=== PATIENT | female | born 1980 | race Caucasian/White ===

== ENCOUNTER 2020-11-15 18:49 | Emergency (ER) | payer OTHER ==
[~2020-11-15] VITALS: Ht 175.3 cm; Wt 113.6 kg
[2020-11-15] MEDS ORDERED: KETOROLAC 30 MG/ML VIAL. IVP ONE (19:15)
[2020-11-15] MEDS ORDERED: IV NORMAL SALINE 1,000ML 1,000 ML IV ONE ×2 (19:15→22:00)
--- NOTE | 2020-11-15 20:02 | PHYS DOC ---
Past History Past Medical History: Diabetes, Gallstones, Hypertension (CECILIA GUEVARA MD) Adult General Chief Complaint Chief Complaint: ABDOMINAL PAIN HPI HPI Patient is a 40-year-old female presents to the emergency department complaining of right lower rib and right upper abdomen pains for the past week. Patient states she has a history of gallstones and was supposed to have them removed last year but then "Covid happened ". Patient states that she sees SAROJ Hoffman for primary care but has not been able to get an appointment this week for her abdominal pains. Patient states that her pain is a 7/10 on a 1-10 pain scale, reporting it is at its worst when she first wakes up in the morning to get out of bed, and then noticed that gets worse when she goes from a sitting to a standing position. Patient states she has nauseated, however has not vomited, denies diarrhea or constipation. Patient denies recent fever or chills, chest pain, headaches, chest congestion or nasal congestion. Patient states she has no allergies to medications, takes no prescription or wwao-tvz-saaxxor medications at home, reports a surgical history of tubal ligation in 2018. Patient states that she has not had a normal period since August 2020. Patient denies any other physical complaints or physical concerns. (TERRENCE MATOS APRN) Review of Systems Review of Systems 14 body systems of review of systems have been reviewed. See HPI for pertinent positives and negative responses, otherwise all other systems are negative, nonpertinent or noncontributory. (TERRENCE MATOS APRN) Current Medications Current Medications Current Medications Medications (Trade) Dose Ordered Sig/Ken Start Time Stop Time Status Last Admin Dose Admin Ketorolac Tromethamine (Toradol 30mg Vial) 30 mg 1X ONCE 11/15/20 19:15 11/15/20 19:46 DC Sodium Chloride 1,000 ml @ 1,000 mls/hr 1X ONCE 11/15/20 19:15 11/15/20 20:14 (TERRENCE MATOS APRN) Allergies Allergies Allergies Coded Allergies Type Severity Reaction Last Updated Verified No Known Drug Allergies 11/15/20 No (TERRENCE MATOS APRN) Physical Exam Physical Exam Constitutional: Well developed, well nourished, no acute distress, non-toxic appearance. 40-year-old female in no apparent distress. HENT: Normocephalic, atraumatic, bilateral external ears normal, oropharynx moist, no oral exudates, nose normal. Eyes: PERRLA, EOMI, conjunctiva normal, no discharge. Neck: Normal range of motion, no tenderness, supple, no stridor. Cardiovascular:Heart rate regular rhythm, no murmur, heart sounds S1-S2 auscultation. Lungs & Thorax: Bilateral breath sounds clear to auscultation, all lung eid, no adventitious lung sounds appreciated. Abdomen: Bowel sounds normal, soft, no tenderness, no masses, no pulsatile masses. Except for right flank at most lower rib, pain elicited with palpation, negative Okeefe sign, negative McBurney's point tenderness, negative psoas sign, no negative rebound tenderness. No ecchymosis appreciated of the abdomen. Skin: Warm, dry, no erythema, no rash. Back: No tenderness, no CVA tenderness of the left or right. Extremities: No tenderness, no cyanosis, no clubbing, ROM intact, no edema. Neurologic: Alert and oriented X 3, normal motor function, normal sensory function, no focal deficits noted. Psychologic: Affect normal, judgement normal, mood normal. (TERRENCE MATOS APRN) Current Patient Data Lab Results Laboratory Tests Test 11/15/20 19:34 POC Urine HCG, Qualitative hcg negative (Negative) (TERRENCE MATOS APRN) EKG EKG [] (TERRENCE MATOS APRN) EKG My interpretation EKG shows sinus rhythm at 68 bpm. No acute morphology (CECILIA GEUVARA MD) Radiology/Procedures Radiology/Procedures [] (TERRENCE MATOS APRN) Radiology/Procedures [address] [address] IMAGING REPORT Signed PATIENT: RADHA JORDAN RACCOUNT: [id number] : 1980 LOCATION: ER AGE: 40 SEX: F EXAM STATUS: REG ER ORD. PHYSICIAN: CECILIA GUEVARA MD REASON: pain- Rt. abd. upper Omni 300 75cc PROCEDURE: CT ABD PELV W/ORAL&IV CONTRAST Exam: CT of abdomen and pelvis with contrast INDICATION: Pain TECHNIQUE: Sequential axial images through the abdomen and pelvis obtained following the administration of 75 mL of Omni 300 IV contrast. Sagittal and coronal reformatted images were reconstructed from the axial data and reviewed. Comparisons: None FINDINGS: Heart size is normal. No pericardial. Visualized lung bases are clear. No pleural effusion. There is hepatomegaly. Gallstones are noted within the gallbladder. Spleen, pancreas and adrenals are unremarkable. No perinephric inflammation or hydronephrosis. No ureteral calculi. Nonobstructing left renal calculus is noted. Bladder is partially distended and not well evaluated. Uterus is nonenlarged. No abnormal adnexal mass. Diverticulosis noted at the sigmoid colon without evidence of acute diverticulitis. Appendix is normal. No free intra-abdominal air or fluid. No obstruction. Abdominal aorta has a normal course and caliber. Abdominal vasculature is patent. No enlarged intra-abdominal lymph nodes are identified. No suspicious osseous lesions or acute fractures. IMPRESSION: 1. No acute process identified in the abdomen or pelvis. 2. Diverticulosis without evidence of acute diverticulitis. Exposure: One or more of the following in the visualized dose reduction techniques were utilized for this examination: 1. Automated exposure control 2. Adjustment of the MA and/or KV according to patient size 3. Use of iterative of reconstructive technique Electronically signed by: Renea Vallejo MD (11/15/2020 9:37 PM) [facility] DICTATED AND SIGNED BY: RENEA VALLEJO MD DATE: 11/15/202132 CC: CECILIA GUEVARA MD; AASHISH HOWE ~MTH0 0 (CECILIA GUEVARA MD) Heart Score C/O Chest Pain: No Risk Factors: Risk Factors: DM, Current or recent (<one month) smoker, HTN, HLP, family history of CAD, obesity. Risk Scores: Risk Factors: DM, Current or recent (<one month) smoker, HTN, HLP, family history of CAD, obesity. (TERRENCE MATOS APRN) HEART Score for Chest Pain: HEART Score for Chest Pain Response (Comments) Value History Slighlty/Non-Suspicious 0 ECG Normal 0 Age < 45 0 Risk Factors 1 or 2 Risk Factors 1 Troponin < Normal Limit 0 Total 1 Course & Med Decision Making Course & Med Decision Making Pertinent Labs and Imaging studies reviewed. (See chart for details) 40-year-old female, vital signs reviewed, presents to the emergency department concerning right upper abdomen pain and right lower rib pain. Physical examination concerning for possible rib injury versus kidney stone versus gallbladder pains. Will start 1 L normal saline, give 4 mg Zofran for nausea, IV Toradol for pain. CBC, CMP, lipase. Urinalysis assay. Will wait for urinalysis assay results to consider imaging of CT abdomen pelvis with or without contrast versus gallbladder sonogram study. End of shift report given to ED attending physician Dr. Guevara. Discussed patient case with Dr. Guevara who has assumed patient care at this time. (TERRENCE MATOS APRN) Course & Med Decision Making Discussed Hx., presentation, testing and tx. plan with Dr. Campbell- pt. to transfer to [facility]- and get surgical consult. Discussed Hx. , presentation, testing and tx plan with Dr. Mendoza- Surgery. Pt. now does not want to go to [facility]. Request transfer to . Pt. states her mother in law just [facility] after complications of abdomen surgery. Request to instead go to . Patient received fluid boluses of normal saline, insulin drip, and Zofran as needed for nausea. Pt.accepted at - Dr. Muñoz . Impression: 1. Abdomen pain 2. Biliary colic-gallstones 3. Elevated LFTs AST 276, ALT 351, alk phos 161 4. Diabetes-new diagnosis-glucose 582 5. Hyponatremia sodium 129 6. Dehydration (CECILIA GUEVARA MD) Dragon Disclaimer Dragon Disclaimer This electronic medical record was generated, in whole or in part, using a voice recognition dictation system. (TERRENCE MATOS APRN) Departure Departure: Referrals: AASHISH HOWE (PCP) Dragon Disclaimer This chart was dictated in whole or in part using Voice Recognition software in a busy, high-work load, and often noisy Emergency Department environment. It may contain unintended and wholly unrecognized errors or omissions. (CECILIA GUEVARA MD) Attending Signature Attending Signature I have participated in the care of this patient and I have reviewed and agree with all pertinent clinical information above including history, exam, and recommendations. (CECILIA GUEVARA MD) TERRENCE MATOS APRN Nov 15, 2020 20:02 CECILIA GUEVARA MD Nov 15, 2020 21:51
[2020-11-15 20:11] LABS: BACTERIA,URINE 0 /HPF (0-FEW); BILIRUBIN,URINE NEG (NEG); CLARITY,URINE CLEAR; COLOR,URINE COLORLESS; GLUCOSE,URINE >=1000 mg/dL (NEG); NITRITE,URINE NEG (NEG); RBC,URINE 0 /HPF (0-2); WBC,URINE 0 /HPF (0-4)
[2020-11-15 20:16] LABS: BASO # 0.1 x10^3/uL (0.0-0.2); BASO % 1 % (0-3); EOS # 0.3 x10^3/uL (0.0-0.7); EOS % 3 % (0-3); HEMATOCRIT 42.4 % (36.0-47.0); HEMOGLOBIN 14.7 g/dL (12.0-15.5); LYMPH % 24 % (24-48); MEAN CORPUSCULAR HEMOGLOBIN 34 pg (25-35); MEAN CORPUSCULAR HGB CONC 35 g/dL (31-37); MEAN CORPUSCULAR VOLUME 99 fL (79-100); MONO # 0.6 x10^3/uL (0.0-1.1); MONO % 7 % (0-9); NEUT # 5.4 x10^3uL (1.8-7.7); NEUT % 65 % (31-73); PLATELET COUNT 251 x10^3/uL (140-400); RED CELL DISTRIBUTION WIDTH 12.4 % (11.5-14.5); WHITE BLOOD COUNT 8.2 x10^3/uL (4.0-11.0)
[2020-11-15] MEDS ORDERED: IOHEXOL 300 MG/ML 75 ML VIAL. IV ONE (20:30)
[2020-11-15] MEDS ORDERED: IOHEXOL 240 MG/ML 50ML VIAL. ONE (20:32)
[2020-11-15 20:33] LABS: ALBUMIN 3.8 g/dL (3.4-5.0); ALBUMIN/GLOBULIN RATIO 0.9 (1.0-1.7); CALCIUM 9.3 mg/dL (8.5-10.1); GFR 62.1; POTASSIUM 3.9 mmol/L (3.5-5.1); TOTAL BILIRUBIN 0.6 mg/dL (0.2-1.0); TOTAL PROTEIN 8.1 g/dL (6.4-8.2)
[2020-11-15] MEDS ORDERED: ONDANSETRON PF 4 MG/2 ML VIAL. IVP ONE (20:45)
--- NOTE | 2020-11-15 21:39 | RAD ---
Exam: CT of abdomen and pelvis with contrast INDICATION: Pain TECHNIQUE: Sequential axial images through the abdomen and pelvis obtained following the administrati on of 75 mL of Omni 300 IV contrast. Sagittal and coronal reformatted images were reconstructed from the axial data and reviewed. Comparisons: None FINDINGS: Heart size is normal. No pericardial. Visualized lung bases are clear. No pleural effusion. There is hepatomegaly. Gallstones are noted within the gallbladder. Spleen, pancreas and adrenals are unremarkable. No perinephric inflammation or hydronephrosis. No ureteral calculi. Nonobstructing left renal calculu s is noted. Bladder is partially distended and not well evaluated. Uterus is nonenlarged. No abnormal adnexal mas s. Diverticulosis noted at the sigmoid colon without evidence of acute diverticulitis. Appendix is luis l. No free intra-abdominal air or fluid. No obstruction. Abdominal aorta has a normal course and caliber. Abdominal vasculature is patent. No enlarged intra-abdominal lymph nodes are identified. No suspicious osseous lesions or acute fractures. IMPRESSION: 1. No acute process identified in the abdomen or pelvis. 2. Diverticulosis without evidence of acute diverticulitis. Exposure: One or more of the following in the visualized dose reduction techniques were utilized for this examination: 1. Automated exposure control 2. Adjustment of the MA and/or KV according to patient size 3. Use of iterative of reconstructive technique Electronically signed by: Renea Daniels MD (11/15/2020 9:37 PM) [facility]
[2020-11-15] MEDS ORDERED: INSULIN REGULAR VIAL 100 UNIT in IV NORMAL SALINE 100ML 100 ML IV ONE (22:15)
--- NOTE | 2020-11-15 23:49 | EKG ---
[address] [address] Test Date: 2020-11-15 Test Time: 22:18:57 Pat Name: RADHA JORDAN Department: Room: Gender: F Grocery Caddy: : 1980 Requested By: CECILIA AMAYA Order Number: [id number] Reading MD: Measurements Intervals [place] Rate: 68 P: 43 DC: 178 QRS: 25 QRSD: 88 T: 9 QT: 380 QTc: 409 Interpretive Statements SINUS RHYTHM NORMAL ECG RI6.02 No previous ECG available for comparison
[2020-11-16 03:43] VITALS: BP 137/76
[2020-11-16] MEDS ORDERED: MORPHINE SULFATE 10 MG/ML SYRINGE. SQ ONE (04:30)
== END 2020-11-16 05:02 | disposition short-term general hospital (02) ==
LOC: ER 18:49
DX: K80.50 Calculus of bile duct without cholangitis or cholecystitis without obstruction (principal); K80.20 Calculus of gallbladder without cholecystitis without obstruction; R79.89 Other specified abnormal findings of blood chemistry; E11.9 Type 2 diabetes mellitus without complications; E87.1 Hypo-osmolality and hyponatremia; E86.0 Dehydration; I10 Essential (primary) hypertension
CPT/HCPCS: 36415; 74177; 80053; 81001; 81025; 82947; 83690; 85025; 93005; 96361; 96365; 96366; 96372; 96375; 99285; J1815; J1885; J2270; J2405; J7030; Q9967

== ENCOUNTER 2021-08-01 20:08 | Emergency (ER) | payer OTHER ==
[~2021-08-01] VITALS: Ht 172.7 cm; Wt 101.0 kg
[2021-08-01] MEDS ORDERED: ACETAMINOPHEN 500 MG TABLET PO ONE (21:15)
[2021-08-01] MEDS ORDERED: PROCHLORPERAZINE 10 MG/2 ML VIAL. IV ONE (21:15)
[2021-08-01] MEDS ORDERED: diphenhydrAMINE 50 MG/ML VIAL IVP ONE (21:15)
--- NOTE | 2021-08-01 21:22 | PHYS DOC ---
Past History Past Medical History: Diabetes, Gallstones, Hypertension Past Surgical History: Cholecystectomy Alcohol Use: Occasionally Adult General Chief Complaint Chief Complaint: NEURO SYMPTOMS/DEFICITS HPI HPI Patient is a 41-year-old female with a past medical history of anxiety and diabetes who presents with a chief complaint of headache/migraine. States that she took a nap earlier in the day and woke up at about 5 PM had a left-sided headache when she woke up, 7 out of 10, dull and achy in nature with some nausea but no vomiting and some photophobia but no phonophobia. Denies any numbness/weakness/tingling. Denies any trouble sitting or standing or walking. States she gets headaches occasionally but never had one this bad before. Denies any recent traumas, travels, illnesses, fevers, neck pain, chest pain, shortness of breath, abdominal pain, dysuria, hematuria, blood in the stool or diarrhea. Denies any alcohol use today but does smoke cigarettes. States that it is significantly better here in the emergency department than at home but still has a left-sided headache, 4 out of 10. Review of Systems Review of Systems Review of systems otherwise unremarkable except noted in HPI Allergies Allergies Allergies Coded Allergies Type Severity Reaction Last Updated Verified No Known Drug Allergies 08/01/21 No Physical Exam Physical Exam Constitutional: Well developed, well nourished, no acute distress, non-toxic appearance. [] HENT: Normocephalic, atraumatic, bilateral external ears normal, oropharynx moist, no oral exudates, nose normal. [] Eyes: PERRLA, EOMI, conjunctiva normal, no discharge. [] Neck: Normal range of motion, no tenderness, supple, no stridor. [] Cardiovascular:Heart rate regular rhythm, no murmur [] Lungs & Thorax: Bilateral breath sounds clear to auscultation [] Abdomen: Bowel sounds normal, soft, no tenderness, no masses, no pulsatile masses. [] Skin: Warm, dry, no erythema, no rash. [] Back: No tenderness, no CVA tenderness. [] Extremities: No tenderness, no cyanosis, no clubbing, ROM intact, no edema. [] Neurologic: Alert and oriented X 3, normal motor function, normal sensory function, able to sit, stand and walk without issue, cranial nerves intact no focal deficits noted. [] Psychologic: Affect normal, judgement normal, mood normal. [] Current Patient Data Vital Signs Vital Signs Date Time Temp Pulse Resp B/P (MAP) Pulse Ox O2 Delivery O2 Flow Rate FiO2 08/01/21 20:28 98.7 84 18 140/85 (103) 96 Room Air Lab Results Laboratory Tests Test 08/01/21 20:25 Glucose (Fingerstick) 121 mg/dL (70-99) H EKG EKG [] Radiology/Procedures Radiology/Procedures [] Heart Score C/O Chest Pain: No Risk Factors: Risk Factors: DM, Current or recent (<one month) smoker, HTN, HLP, family history of CAD, obesity. Risk Scores: Risk Factors: DM, Current or recent (<one month) smoker, HTN, HLP, family history of CAD, obesity. Course & Med Decision Making Course & Med Decision Making Patient is a 41-year-old female who presents with headache Vital signs not concerning. Physical exam noted above. Patient given headache cocktail. Laboratory analysis not concerning. 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 Gave patient print off for primary care physician. On reassessment patient stated symptoms were completely gone and she was ready to be discharged home. Advised to follow-up in the morning with primary care physician to discuss her ED visit. Gave return precautions to the ED. Patient grateful, verbalized understanding and agreed with plan of discharge. [] Dragon Disclaimer Dragon Disclaimer This electronic medical record was generated, in whole or in part, using a voice recognition dictation system. Departure Departure: Impression: Primary Impression: Headache Disposition: HOME / SELF CARE / HOMELESS Referrals: PENELOPE NICHOLS MD (PCP) Patient Instructions: General Headache Without Cause Additional Instructions: Thank you for coming into the emergency department tonight and allowing us to take care of you. Please read the attached information carefully to go back over what we discussed. You can use Tylenol, ibuprofen and Benadryl as we did here in the emergency department for control. Please follow-up in the morning with your primary care physician to discuss your ED visit and CT results. Please come back with new or concerning symptoms as we discussed. ASIM DAY MD Aug 01, 2021 21:22
[2021-08-01 21:26] LABS: BASO # 0.1 x10^3/uL (0.0-0.2); BASO % 1 % (0-3); EOS # 0.4 x10^3/uL (0.0-0.7); EOS % 4 % (0-3); HEMATOCRIT 43.1 % (36.0-47.0); HEMOGLOBIN 14.9 g/dL (12.0-15.5); LYMPH # 2.9 x10^3/uL (1.0-4.8); LYMPH % 27 % (24-48); MEAN CORPUSCULAR HEMOGLOBIN 34 pg (25-35); MEAN CORPUSCULAR HGB CONC 35 g/dL (31-37); MEAN CORPUSCULAR VOLUME 99 fL (79-100); MONO # 0.7 x10^3/uL (0.0-1.1); MONO % 7 % (0-9); NEUT # 6.7 x10^3uL (1.8-7.7); NEUT % 62 % (31-73); PLATELET COUNT 305 x10^3/uL (140-400); RED BLOOD COUNT 4.37 x10^6/uL (3.50-5.40); RED CELL DISTRIBUTION WIDTH 12.8 % (11.5-14.5); WHITE BLOOD COUNT 10.8 x10^3/uL (4.0-11.0)
[2021-08-01 21:28] LABS: CREATININE 0.7 mg/dL (0.6-1.0); GFR 93.2; POTASSIUM 3.8 mmol/L (3.5-5.1)
--- NOTE | 2021-08-01 21:45 | RAD ---
PQRS Compliance Statement: One or more of the following individualized dose reduction techniques were utilized for this examinat ion: 1. Automated exposure control 2. Adjustment of the mA and/or kV according to patient size 3. Use of iterative reconstruction technique CT HEAD WITHOUT CONTRAST History: Reason: atypical SIDDIQUI / Spl. Instructions: / History: Comparison: None. Procedure: Axial images are obtained of the head from the skull base through the vertex without IV co ntrast. Findings: The ventricles and sulci are normal for the patient's age. No mass-effect, midline shift, hemorrhage, extra-axial fluid collection, or obvious acute infarction is identified. Basilar cisterns are patent. Bone windows demonstrate no acute calvarial abnormality. 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 The visualized paranasal sinuses are clear. Mastoid air cells are well aerated. IMPRESSION: No acute intracranial abnormality. Electronically signed by: Gaurav Jacobo MD (08/01/2021 9:43 PM) [facility]
[2021-08-01 22:20] VITALS: BP 121/73
--- NOTE | 2021-08-02 05:35 | EKG ---
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
== END 2021-08-01 22:20 | disposition home or self-care (01) ==
LOC: ER 20:08
DX: R51.9 Headache, unspecified (principal); E11.9 Type 2 diabetes mellitus without complications; I10 Essential (primary) hypertension; F41.9 Anxiety disorder, unspecified
CPT/HCPCS: 36415; 70450; 80048; 82947; 84484; 85025; 93005; 96374; 96375; 99285; J0780; J1200; 99284

== ENCOUNTER 2021-09-16 21:39 | Emergency (ER) | payer OTHER ==
[~2021-09-16] VITALS: Ht 172.7 cm; Wt 101.0 kg
[2021-09-16 21:54] VITALS: BP 114/69
--- NOTE | 2021-09-16 22:12 | PHYS DOC ---
Past History Past Medical History: Diabetes, Gallstones, Hypertension Past Surgical History: Cholecystectomy Alcohol Use: Occasionally Adult General Chief Complaint Chief Complaint: COUGH HPI HPI Patient is a 41-year-old female smoker with COPD who presents with increased mucus production, and cough over the last couple of days. Has not been Covid vaccinated. Denies any fevers, chest pain, shortness of breath, abdominal pain, nausea, vomiting, diarrhea. Review of Systems Review of Systems Review of systems otherwise unremarkable except noted in HPI Allergies Allergies Allergies Coded Allergies Type Severity Reaction Last Updated Verified No Known Drug Allergies 08/01/21 No Physical Exam Physical Exam Constitutional: Well developed, well nourished, no acute distress, non-toxic appearance. [] HENT: Normocephalic, atraumatic, bilateral external ears normal, oropharynx moist, no oral exudates, nose normal. [] Neck: Normal range of motion, no tenderness, supple, no stridor. [] Cardiovascular:Heart rate regular rhythm, no murmur [] Lungs & Thorax: Mild bilateral rhonchi with no increased work of breathing Abdomen: soft, no tenderness, no masses, no pulsatile masses. [] Skin: Warm, dry, no erythema, no rash. [] Extremities: ROM intact, no edema. [] Neurologic: Alert and oriented X 3, no focal deficits noted. [] Psychologic: Affect normal, judgement normal, mood normal. [] Current Patient Data Vital Signs Vital Signs Date Time Temp Pulse Resp B/P (MAP) Pulse Ox O2 Delivery O2 Flow Rate FiO2 09/16/21 21:54 97.9 94 20 114/69 (84) 97 Room Air EKG EKG [] Radiology/Procedures Radiology/Procedures [] Heart Score C/O Chest Pain: No Risk Factors: Risk Factors: DM, Current or recent (<one month) smoker, HTN, HLP, family history of CAD, obesity. Risk Scores: Risk Factors: DM, Current or recent (<one month) smoker, HTN, HLP, family history of CAD, obesity. Course & Med Decision Making Course & Med Decision Making Patient is a 41-year-old female who presents with productive cough Vital signs not concerning. Physical exam noted above. Patient with COPD and getting breathing treatment, steroids, antibiotics, antiemetics and antitussives Covid swab pending. Discussed symptom management at home. Discussed COVID quarantine and given education. Advised to follow-up on Saturday with primary care physician. Gave return precautions to the ED. Patient grateful, verbalized understanding and agreed with plan of discharge. [] Geeta Disclaimer Geeta Disclaimer This electronic medical record was generated, in whole or in part, using a voice recognition dictation system. Departure Departure: Impression: Primary Impression: Productive cough Additional Impression: Person under investigation for COVID-19 Disposition: HOME / SELF CARE / HOMELESS Condition: GOOD Referrals: PENELOPE NICHOLS MD (PCP) Patient Instructions: Chronic Obstructive Pulmonary Disease, Chronic Obstructive Pulmonary Disease Exacerbation, Viral Syndrome Additional Instructions: Thank you for coming into the emergency department tonight and allowing us to take care of you. Please read the attached information carefully to go over things we discussed. Please follow-up on Saturday with your primary care physician to discuss your ED visit and set up a follow-up as soon as you can. You have been tested for or diagnosed with COVID-19. It is an infection caused by a new type of coronavirus. COVID-19 will cause cold-like or mild flu symptoms in most. It can cause more severe symptoms like problems breathing in some. There is no treatment for COVID-19. The body will clear the infection over time. Self-care will help to ease discomfort. Steps to Take: Self-Care Rest as needed. Healthy habits may help you feel better. Steps include: Choose healthy foods including fruits and vegetables. Drink water throughout the day. Get plenty of sleep each night. If you smoke, try to quit. It may ease breathing. Avoid alcohol. Keep Others Healthy The virus can spread to others. Droplets are released every time you sneeze or cough. The droplets can get into the mouth, nose, or eyes of people near you and lead to infection. To lower the chances of spreading COVID-19 to others: Stay at home until your doctor has said it is safe to leave. If you tested positive this will mean staying isolated until both of the following are true: At least 7 days have passed since the start of illness. You are free of fever for at least 72 hours without the use of medicine. During this time: - Avoid public areas, events, or transportation. Do not return to work or school until your doctor has said it is safe to do so. - Call ahead if you need to go to a medical center. Let them know you may have COVID-19. It will help them guide you where to go. They may also ask you to wear a facemask when you come to the office. - If you call for emergency medical services, let them know you may have COVID- 19. While at home: - Try to avoid close contact with others. Stay about 6 feet away. - If possible, spend most of your time in a separate room from others. - Use a face mask if you will be in close contact with others such as sharing a room or vehicle. - Have someone wipe down common surfaces in the home. Use household hr representative every day on areas like doorknobs, counters, or sinks. - Cough or sneeze into a tissue. Throw the tissue away right after use. If a tissue is not available, cough or sneeze into your elbow. - Wash your hands often. Wash them after sneezing or coughing. Use soap and water and wash for at least 20 seconds. Alcohol based hand cleaners can be used if soap and water is not available. - Do not prepare food for others. Avoid sharing personal items like forks, spoons, or toothbrushes. - Avoid close contact with pets while you are sick. There is no evidence of the virus passing to pets. This is a safety step until more is known about this virus. Isolation can be frustrating. Social interaction can help. Keep in touch with friends and family through phone and tech options. You can still interact with others in your home, just keep a safe distance of about 6 feet. Follow-up: Your doctors office will check in with you to see if there are any changes in your health. You may be asked to keep track of symptoms to share with them. They will also let you know when you are clear to be in public again. Problems to Look Out For: Contact your doctor if your recovery is not going as you expect. Get emergency care if you have problems such as: - Trouble breathing - Nonstop chest pain or pressure - Changes in awareness, confusion, or problems waking - Lips or face have bluish color - Worsening of symptoms If you think you have an emergency, call for emergency medical services right away. [facility] Problem Qualifiers ASIM DAY MD Sep 16, 2021 22:12
[2021-09-16] MEDS ORDERED: ALBUTEROL SULFATE 8GM INHALER. ONE (22:14)
[2021-09-16] MEDS ORDERED: diphenhydrAMINE HCL 25 MG CAPSULE PO ONE ×2 (22:15→22:30)
[2021-09-16] MEDS ORDERED: DEXAMETHASONE 4 MG TABLET ONE (22:16)
[2021-09-16] MEDS ORDERED: ONDANSETRON ODT 4 MG TAB.RAPDIS ONE (22:16)
[2021-09-16] MEDS ORDERED: guaiFENesin/CODEINE 100mg/10mg 5 ML LIQUID ONE (22:22)
[2021-09-16] MEDS ORDERED: DEXAMETHASONE 4 MG TABLET PO ONE (22:30)
[2021-09-16] MEDS ORDERED: ONDANSETRON ODT 4 MG TAB.RAPDIS PO ONE (22:30)
[2021-09-16] MEDS ORDERED: ALBUTEROL SULFATE 8GM INHALER. INH ONE (22:30)
[2021-09-16] MEDS ORDERED: guaiFENesin/CODEINE 100mg/10mg 5 ML LIQUID PO ONE (22:30)
== END 2021-09-16 22:26 | disposition home or self-care (01) ==
LOC: ER 21:39
DX: R05.9 Cough, unspecified (principal); Z20.822 Contact with and (suspected) exposure to COVID-19
CPT/HCPCS: 94640; 99284; C9803; J8540; Q0162; Q0163; U0003; 94664